=== PATIENT | female | born 1980 | race Caucasian/White ===

== ENCOUNTER 2018-09-03 17:19 | Emergency (ER) | payer BC, MEDICAID ==
[2018-09-03 17:29] VITALS: O2SAT 98
--- NOTE | 2018-09-03 17:50 | ED PDOC ---
HPI: Head Injury Time Seen by Provider: 09/03/18 17:33 Chief Complaint (Nursing): Trauma Chief Complaint (Provider): Head Injury History Per: Patient History/Exam Limitations: no limitations Injury Occurred (Timing): Today @ (1400) Patient States: Fell Striking Head Additional Complaint(s): 37 year old female presents to the ED for evaluation of a head injury she sust ained around [address] work. She reports slipping in the snow and falling backwards, striking her head against the concrete. Patient notes a history of migraines and says she woke up with one this morning, worsening since the fall and unrelieved by 400mg Ibuprofen taken around 1415. She describes the headache as throbbing associated with neck pain. Otherwise denies loss of consciousness, visual changes, dizziness, and recent fever. Patient states that just before arrival, she had one episode of non-bilious, non-bloody vomit which prompted her to come in for evaluation. LNMP: currently PMD: none provided Past Medical History Reviewed: Historical Data, Nursing Documentation, Vital Signs Vital Signs: Last Vital Signs Temp 98.4 F 09/03/18 17:24 Pulse 64 09/03/18 17:24 Resp 16 09/03/18 17:24 BP 108/58 L 09/03/18 17:24 Pulse Ox 98 09/03/18 17:24 - Medical History PMH: Asthma (childhood), Migraine - Surgical History Surgical History: Appendectomy - Family History Family History: States: Unknown Family Hx - Social History Current smoker - smoking cessation education provided: Yes (pack a day) Alcohol: Social Drugs: Cannabis - Home Medications Home Medications: Ambulatory Orders Medication Instructions Recorded Acetaminophen [Acetaminophen 8 650 mg PO Q8 PRN #21 tablet.er 09/03/18 Hour] - Allergies Allergies/Adverse Reactions: Allergies Allergy/AdvReac Type Severity Reaction Status Date / Time aspirin Allergy SHORTNESS Verified 09/03/18 17:24 OF BREATH Review of Systems ROS Statement: Except As Marked, All Systems Reviewed And Found Negative Constitutional: Positive for: Other (head injury). Negative for: Fever Eyes: Negative for: Vision Change Gastrointestinal: Positive for: Vomiting (x1 episode non-bloody, non-bilious) Musculoskeletal: Positive for: Neck Pain Neurological: Positive for: Headache (throbbing). Negative for: Dizziness, Other (loss of consciousness) Physical Exam - Reviewed Nursing Documentation Reviewed: Yes Vital Signs Reviewed: Yes - Physical Exam Comments: GENERAL APPEARANCE: Patient is awake, alert, oriented x 3, in no acute distress. SKIN: Warm, dry; (-) cyanosis; (-) rash. HEAD: (+) occipital and posterior parietal scalp tenderness with small hematoma, (-) erythema, (-) skin break, (-) palpable bony deformity EYES: (-) conjunctival pallor, (-) scleral icterus. ENMT: FROM of mandible (-) sinus or nasal tenderness; mucous membranes are moist. Airway patent, (-) stridor. NECK: Supple, FROM (+) midline and bilateral paracervical tenderness, (-) stiffness, (-) meningismus, (-) lymphadenopathy, (-) palpable deformity. CHEST AND RESPIRATORY: (-) rales, (-) rhonchi, (-) wheezes; breath sounds equal bilaterally. Respirations even and nonlabored. HEART AND CARDIOVASCULAR: (-) irregularity EXTREMITIES: (-) deformity. NEURO AND PSYCH: Mental status as above. solutions development analyst: Pupils equal and reactive; EOMI; (-) facial asymmetry; tongue and uvula midline. Strength symmetric. Gait: steady. Speech: clear. Cerebellar tests intact. - Laboratory Results Urine POC: Negative - ECG O2 Sat by Pulse Oximetry: 98 (RA) Pulse Ox Interpretation: Normal Medical Decision Making Medical Decision Making: Initial Impression: closed head injury, headache, acute neck pain s/p fall Time: 1734 Initial Plan: --CT Head without contrast --C-spine CT --U-preg --Tylenol 650mg PO --Zofran 4mg PO --Reevaluation 1839 CT Head FINDINGS: HEMORRHAGE: No intracranial hemorrhage. BRAIN: No mass effect or edema. No atrophy or chronic microvascular ischemic changes. VENTRICLES: Unremarkable. No hydrocephalus. CALVARIUM: Unremarkable. PARANASAL SINUSES: Unremarkable as visualized. No significant inflammatory changes. MASTOID AIR CELLS: Unremarkable as visualized. No inflammatory changes. OTHER FINDINGS: None. IMPRESSION: No acute intracranial abnormalities. No significant findings to account for the clinical presentation. CT C-spine Findings: Straightening of the normal cervical lordosis may be related to muscle spasm or positioning. There is no evidence of acute fracture or subluxation. There is preserved alignment, vertebral body height, intervertebral disc spaces. The prevertebral soft tissues and spinolaminar lines appear intact. The lateral masses are preserved. The dens tip is intact. There is proper alignment of the lateral masses of C1 with the C2 vertebral body. Included portions of the thyroid gland appear unremarkable. Included portions of lung apices appear clear. Impression: Straightening of the normal cervical lordosis may be related to muscle spasm or positioning. No evidence of acute fracture or subluxation. 1850 On re-evaluation, patient reports improvement of symptoms. On exam, patient remains AAOx3, in no acute distress. Repeat neuro exam shows no focal findings. Vitals stable. Lab/Diagnostic results d/w the patient in great detail. Diagnosis of closed head injury, concussion/headache, acute neck pain s/p fall d/w the patient. Based on history, exam and diagnostic results, plan will be for outpatient follow up with clinic/neuro. Patient instructed to follow-up with pmd / referral provided / the clinic in 1- 2 days without fail. Advised to take medication as prescribed. Return to the emergency room at any time for any new or worsening symptoms. Patient states she fully agrees with and understands discharge instructions. States that she agrees with the plan and disposition. Verbalized and repeated discharge instructions and plan. I have given the patient opportunity to ask any additional questions. Scribe Attestation: Documented by Monica Parsons, acting as a scribe for Adina Tracey PA-C. Provider Scribe Attestation: All medical record entries made by the Scribe were at my direction and personally dictated by me. I have reviewed the chart and agree that the record accurately reflects my personal performance of the history, physical exam, medical decision making, and the department course for this patient. I have also personally directed, reviewed, and agree with the discharge instructions and disposition. Disposition - Clinical Impression Clinical Impression: Closed head injury, Headache, Nausea and vomiting, Acute neck pain - Patient ED Disposition Is Patient to be Admitted: No Counseled Patient/Family Regarding: Studies Performed, Diagnosis, Need For Followup, Rx Given - Disposition Referrals: [facility] [Outside] Robert Treadwell MD [Medical Doctor] - Disposition: Routine/Home Disposition Time: 18:50 Condition: STABLE Additional Instructions: The emergency medical care you received today was directed at your acute symptoms. If you were prescribed any medication, please fill it and take as directed. It may take several days for your symptoms to resolve. Return to the Emergency Department if your symptoms worsen, do not improve, or if you have any other problems. Please contact your doctor in 2 days for re-evaluation and follow up / or call one of the physicians/clinics you have been referred to that are listed on the Patient Visit Information form that is included in your discharge packet. Bring any paperwork you were given at discharge with you along with any medications you are taking to your follow up visit. Our treatment cannot replace ongoing medical care by a primary care provider (PCP) outside of the emergency department. Prescriptions: Acetaminophen [Acetaminophen 8 Hour] 650 mg PO Q8 PRN #21 tablet.er PRN Reason: Headache Instructions: Concussion in Adults, Closed Head Injury, Nausea and Vomiting, Adult (DC), Postconcussion Syndrome (DC), Neck Pain Forms: [facility] (Telugu) Print Language: [place] - POA Present On Arrival: Falls Or Trauma
--- NOTE | 2018-09-03 18:44 | CT ---
Date of service: 09/03/2018 PROCEDURE: CT HEAD WITHOUT CONTRAST. HISTORY: s/p fall, vomit x1 COMPARISON: None available. TECHNIQUE: Axial computed tomography images were obtained through the head/brain without intravenous contrast. Supplemental Coronal and Sagittal projections created and reviewed. Radiation dose: Total exam DLP = 830.64 mGy-cm. This CT exam was performed using one or more of the following dose reduction techniques: Automated exposure control, adjustment of the mA and/or kV according to patient size, and/or use of iterative reconstruction technique. FINDINGS: HEMORRHAGE: No intracranial hemorrhage. BRAIN: No mass effect or edema. No atrophy or chronic microvascular ischemic changes. VENTRICLES: Unremarkable. No hydrocephalus. CALVARIUM: Unremarkable. PARANASAL SINUSES: Unremarkable as visualized. No significant inflammatory changes. MASTOID AIR CELLS: Unremarkable as visualized. No inflammatory changes. OTHER FINDINGS: None. IMPRESSION: No acute intracranial abnormalities. No significant findings to account for the clinical presentation.
--- NOTE | 2018-09-03 18:50 | CT ---
Date of service: 09/03/2018 CT cervical spine without IV contrast Indication: s/p fall Comparison: None available Technique: Axial computed tomography images were obtained of the cervical spine without the use of intravenous contrast. Coronal and sagittal reformatted images were created and reviewed. This CT exam was performed using 1 or more of the following dose reduction techniques: Automated exposure control, adjustment of the MAA and/or kV according to patient size, and/or use of iterative reconstruction technique. Radiation dose: Total exam DLP = 333.71 mGy-cm. Findings: Straightening of the normal cervical lordosis may be related to muscle spasm or positioning. There is no evidence of acute fracture or subluxation. There is preserved alignment, vertebral body height, intervertebral disc spaces. The prevertebral soft tissues and spinolaminar lines appear intact. The lateral masses are preserved. The dens tip is intact. There is proper alignment of the lateral masses of C1 with the C2 vertebral body. Included portions of the thyroid gland appear unremarkable. Included portions of lung apices appear clear. Impression: Straightening of the normal cervical lordosis may be related to muscle spasm or positioning. No evidence of acute fracture or subluxation.
[2018-09-03 19:02] VITALS: BP 110/70; PULSE 67; RESP 18; TEMP 98
== END 2018-09-03 19:01 | disposition home or self-care (01) ==
LOC: H.ER 17:19
DX: S09.90XA Unspecified injury of head, initial encounter (principal); R51 Headache; R11.2 Nausea with vomiting, unspecified; M54.2 Cervicalgia; W01.0XXA Fall on same level from slipping, tripping and stumbling without subsequent striking against object, initial encounter; Y92.480 Sidewalk as the place of occurrence of the external cause